=== PATIENT | male | born 1955 | race Caucasian/White ===

== ENCOUNTER 2023-10-05 09:53 | Emergency (ER) | payer MEDICARE, OTHER ==
[2023-10-05] MEDS: Ketorolac 30 MG/ML SDV IM ONE (10:18)
[2023-10-05] MEDS: Acetaminophen/oxyCODONE 325-5 MG Tab PO ONE (10:19)
[2023-10-05] MEDS: Sodium Chloride 0.9% 1,000 ML IV ONE ×2 (10:30→11:04)
[2023-10-05] MEDS: Sodium Chloride 0.9% 10 ML Syringe FLUSH PRN (10:33)
== END 2023-10-05 12:25 | disposition home or self-care (01) ==
LOC: DL.ED 09:53
DX: S43.101A Unspecified dislocation of right acromioclavicular joint, initial encounter (principal); Z79.899 Other long term (current) drug therapy; W23.0XXA Caught, crushed, jammed, or pinched between moving objects, initial encounter
CPT/HCPCS: 73030; 73050; 96360; 96361; 96372; 99283; A9270; J1885; J7030; J3490